=== PATIENT | female | born 1955 | race Caucasian/White ===

== ENCOUNTER → 2018-08-10 | Outpatient (CLI) | payer BC ==
[~2018-08-10] MED LIST: LEVO75TA5 PO
--- NOTE | 2018-08-10 17:58 | HKNOTE ---
DATE OF SERVICE: 08/10/2018 CHIEF COMPLAINT: Right shoulder pain. HISTORY OF PRESENT ILLNESS: The patient is a 63-year-old female complaining of chronic right shoulde r pain. She states that the pain is mostly in her shoulder and arm. She has difficulty raising her arm. She has pain that is constant. There are no alleviating factors. She has not had previous chaitanya atment. She is taking ibuprofen for pain control. PAST MEDICAL HISTORY: None. MEDICATIONS: None. PAST SURGICAL HISTORY: None. ALLERGIES: NONE. SOCIAL HISTORY: Denies tobacco or alcohol use. ALLERGIES: PENICILLIN. RIGHT SHOULDER EXAMINATION: 130 degrees of forward flexion, 30 degrees of extension, 80 degrees of i nternal rotation, 70 degrees of external rotation, 140 degrees of abduction, 20 degrees of adduction, positive Mills test, positive Neer test. X-RAYS, RIGHT SHOULDER: There are degenerative changes of the right AC joint. IMPRESSION: A 63-year-old female with right shoulder pain. PLAN: We will request authorization for outpatient physical therapy and MRI of the right shoulder to evaluate for rotator cuff tear and biceps tendon tear. She was instructed on home exercises. She w ill follow up in 6 weeks. Dictated By: CHOCO GUNTER/FER Conf#: [id number] DID#: [id number]
--- NOTE | 2018-08-11 12:54 | RADRPT ---
PROCEDURE: XR shoulder CLINICAL INDICATION: Right shoulder pain TECHNIQUE: Three views of the right shoulder were obtained. COMPARISON: None. FINDINGS: There is no acute fracture or dislocation. Osseous structures are intact. There are mild osteoarthrit ic changes of the right acromioclavicular joint. There is no focal soft tissue abnormality. IMPRESSION: 1. No acute osseous abnormality. 2. Mild osteoarthritis of the right acromioclavicular joint. RPTAT:AAEE Physician Haritha Date Time Electronically viewed and signed by Physician Haritha on 08/11/2018 12:54 RM/
== END | disposition home or self-care (01) ==
LOC: HKI 15:30
PROVIDERS: ATTEND Orthopaedic Surgery Adult Reconstructive Orthopaedic Surgery
DX: M25.511 Pain in right shoulder (principal)
CPT/HCPCS: 73030; Z7500; G0463

== ENCOUNTER → 2018-09-28 | Outpatient (CLI) | payer BC ==
--- NOTE | 2018-09-28 17:20 | HKNOTE ---
DATE OF SERVICE: HISTORY OF PRESENT ILLNESS: Ms. [place] is complaining of right shoulder pain. She has pain at [facility]. The pain is interfering with her activities of daily living. She is here to go over MRI result s. PHYSICAL EXAMINATION: Right shoulder: 130 degrees of forward flexion, 30 degrees extension, 80 degr ees internal rotation, 70 degrees of external rotation, 140 degrees of abduction, 20 degrees of adduc tion. Positive Mills test, positive Neer's test. IMAGING: MRI of the right shoulder: There is a 6 mm bursal tear of the supraspinatus tendon at the footprint. IMPRESSION: A 63-year-old female with right shoulder rotator cuff tear. PLAN: We will request authorization for right shoulder steroid injection. She will return in 6 week s. Dictated By: CHOCO GUNTER/FER Conf#: [id number] DID#: [id number]
== END | disposition home or self-care (01) ==
LOC: HKI 15:03
PROVIDERS: ATTEND Orthopaedic Surgery Adult Reconstructive Orthopaedic Surgery
DX: M75.101 Unspecified rotator cuff tear or rupture of right shoulder, not specified as traumatic (principal)
CPT/HCPCS: G0463

== ENCOUNTER → 2018-10-19 | Outpatient (CLI) | payer BC ==
--- NOTE | 2018-10-19 16:23 | HKNOTE ---
DATE OF SERVICE: 10/19/2018 CHIEF COMPLAINT: Right shoulder pain. HISTORY OF PRESENT ILLNESS: Ms. [place] is here today complaining of right shoulder pain. She is here for her right shoulder steroid injection. PHYSICAL EXAMINATION: RIGHT SHOULDER: Tender over the supraspinatus fossa. Positive Neer's test, positive Mills test. A 180 degrees of abduction, 180 degrees of forward flexion, 90 degrees external rotation, 90 degrees internal rotation. A 5/5 function of median, ulnar, radial and musculocutaneous nerves. IMPRESSION: A 63-year-old female with a right shoulder rotator cuff tear. PLAN: After obtaining consent, the right shoulder was prepped and draped in usual sterile fashion. A mixture of 1 mL of triamcinolone along with 3 mL of lidocaine was instilled through posterior katerina l. There were no complications. She tolerated the procedure well. She was instructed to ice the ri ght shoulder. She will follow up in 4 months. Dictated By: CHOCO GUNTER/FER Conf#: [id number] DID#: [id number]
== END | disposition home or self-care (01) ==
LOC: HKI 14:27
PROVIDERS: ATTEND Orthopaedic Surgery Adult Reconstructive Orthopaedic Surgery
DX: M75.101 Unspecified rotator cuff tear or rupture of right shoulder, not specified as traumatic (principal)
CPT/HCPCS: 20610; Z7500; Z7610; G0463